=== PATIENT | female | born 1980 | race Caucasian/White ===

== ENCOUNTER 2017-12-04 13:57 | Inpatient (IN) | payer OTHER ==
[~2017-12-04] VITALS: Ht 162.6 cm; Wt 92.1 kg
--- NOTE | 2017-12-07 08:12 | PR ---
[facility] [address] [place], [place] [address] Signed PP Progress Notes Datetime Report Generated by DENAE: 12/07/2017 08:12 SUBJECTIVE: [id number] Pain: Within normal limits Pain Comments: Denies any heavy bleeding Nausea/Vomiting: Denies Vital Signs: [id number] Vital Signs: Reviewed Notable Details: rare elevation in BP EXAM: [id number] Cardiovascular: Not Done Respiratory: Not Done Abdomen/Uterus: Abnormal Lochia: Normal Vulva/Perineum: Not Done Breasts: Not Done CVA Tenderness: Not Done Extremities: Normal Incision: Not Applicable Progress: Normal Exam Comments: Fundus firm, NT @ U-1. IMPRESSION/PLAN/PROCEDURES: [id number] Impression: Normal progression Other Impression: episode of bleeding xs 2 Plan: Discharge Procedures: None Progress Notes: Doing well. She is ready for D/C. Signing Physician: Mabel Cortes MD CC: *Electronically Signed* 12/07/17 0812 MABEL CORTES MD PATIENT NAME: RAMIREZBAMTREVOR MORALES PROGRESS NOTE DATE OF : 84 PHYSICIAN: MABEL CORTES MD RPT #: [id number] REPORT IS CONFIDENTIAL AND NOT TO BE RELEASED WITHOUT AUTHORIZATION
== END 2017-12-07 13:00 | disposition home or self-care (01) | DRG 775 ==
LOC: FBCO 13:57 → FBC 15:43
PROVIDERS: ADMIT Obstetrics & Gynecology
PROC: 10907ZC Drainage of Amniotic Fluid, Therapeutic from Products of Conception, Via Natural or Artificial Opening (ICD-10-PCS; principal; 2017-12-05)
PROC: 10E0XZZ Delivery of Products of Conception, External Approach (ICD-10-PCS; principal; 2017-12-05)
PROC: 0KQM0ZZ Repair Perineum Muscle, Open Approach (ICD-10-PCS; principal; 2017-12-05)
PROC: 00HU33Z Insertion of Infusion Device into Spinal Canal, Percutaneous Approach (ICD-10-PCS; 2017-12-05)
PROC: 3E0R3BZ Introduction of Anesthetic Agent into Spinal Canal, Percutaneous Approach (ICD-10-PCS; 2017-12-05)
PROC: 3E0P7VZ Introduction of Hormone into Female Reproductive, Via Natural or Artificial Opening (ICD-10-PCS; 2017-12-05)
PROC: 3E033VJ Introduction of Other Hormone into Peripheral Vein, Percutaneous Approach (ICD-10-PCS; 2017-12-05)
DX: O14.94 Unspecified pre-eclampsia, complicating childbirth (principal); O70.1 Second degree perineal laceration during delivery; Z37.0 Single live birth; Z3A.37 37 weeks gestation of pregnancy
CPT/HCPCS: 01960; 36415; 59025; 82565; 84450; 84520; 84550; 85025; 85027; 99213; J2590; J2795; J7120